=== PATIENT | female | born 1990 ===

== ENCOUNTER 2025-01-18 10:30 | Outpatient (REF) | payer SELFPAY ==
--- NOTE | 2025-01-18 10:30 | PAPFT_PTH ---
PATIENT: Charlotte Florian LOC: [facility] U#:[id number] AGE/SX: 34/F ROOM: RE01/18/[address]: Heavenly Lilly NP : [id number] BED: DIS: 01/18/2025 SPEC #: [id number] RECD: 01/18/25 13:05 STATUS: PARK REPrimo #: [id number] LORENA: 01/18/25 10:[address]: Heavenly Lilly NP DEPT: [facility] Cytology RECD BY: Jen Lee ENTERED: 01/18/25 13:06 SP TYPE: PAPFT OTHR DR: Unknown,Unknown Tissues: 1 - CX/ENDOCX FOR PAP SMEARS Procedures: PAP THIN PREP/[facility] Screening HPV DNA PROBE Comments: [id number] (HPV 16 & 18/45) (CHLAMYDIA/GC)
[2025-01-19 12:54] LABS: Chlamydia Result Negative (Negative); GC Result Negative (Negative)
== END 2025-01-18 10:31 | disposition home or self-care (01) ==
LOC: LBN 10:30
PROVIDERS: Visit Provider Nurse Practitioner Women's Health
DX: Z11.3 Encounter for screening for infections with a predominantly sexual mode of transmission (principal); Z01.419 Encounter for gynecological examination (general) (routine) without abnormal findings; Z12.4 Encounter for screening for malignant neoplasm of cervix
CPT/HCPCS: 87491; 87591; 88142; 87624